=== PATIENT | female | born 1990 | race Caucasian/White ===

== ENCOUNTER 2019-11-27 18:35 | Observation (INO) | payer OTHER, SELFPAY ==
[2019-11-27 19:10] VITALS: BP 108/66; PULSE 62
[2019-11-27 19:15] VITALS: BP 114/70; PULSE 63; BMI 30.2
[2019-11-27] MEDS: CALCIUM CARBONATE (TUMS) 500 MG (200 MG ELEMENTAL) PO (20:48)
[2019-11-27 20:56] LABS: Add Urine Microscopic? NO; Appearance Urine Clear (Clear); Bilirubin Urine Negative (Negative); Blood Urine Negative (Negative); Color Urine Straw (Yellow); Glucose Urine UA Negative (Negative); Ketones Urine Negative (Negative); Leukocyte Esterase Ur Negative LEU/UL (NEGATIVE); Nitrate Urine Negative (Negative); Protein Urine Negative (Negative); Specific Grav Ur 1.006 (1.001-1.035); Urobilinogen Urine Negative mg/dL (<2.0)
[2019-11-27 21:22] LABS: Fetal Fibronectin Negative
[2019-11-27] MEDS: TERBUTALINE SULFATE 1 MG/ML VIAL 0.25 MG SUB-Q (21:35)
--- NOTE | 2019-11-27 21:41 | OBADM ---
This patient, Molly Aguirre, admitted to the OB room OB Post 116 for observation. Patient/family oriented to hospital policies and general routines including ID bracelet, bed and alarms, visiting hours, pain management, procedures, bathroom and other care routines, personal items, smoking policy, room service/diet, and visiting hours. Patient/Family are encouraged to report perceived risks to care and to ask questions if they do not understand what they are told or what they should do.
--- NOTE | 2019-11-30 07:38 | P.PNOB_ITS ---
OB - Triage/Final Diagnosis Visit Information Reason for evaluation: other (abdominal pain) Evaluation Laboratory results: Laboratory Tests 11/27/19 11/27/19 20:41 20:41 Urine Color Straw Urine Appearance Clear Urine pH 8.0 Ur Specific [place] 1.006 Urine Protein Negative Urine Glucose (UA) Negative Urine Ketones Negative Ur Blood (Man) Negative Urine Nitrate Negative Urine Bilirubin Negative Urine Urobilinogen Negative Ur Leukocyte Esterase Negative Fibronectin Negative
== END 2019-11-27 23:00 | disposition home or self-care (01) ==
PROVIDERS: Admitting Provider Obstetrics & Gynecology Gynecology; Visit Provider Obstetrics & Gynecology Gynecology
DX: O26.893 Other specified pregnancy related conditions, third trimester (principal); R10.9 Unspecified abdominal pain; Z3A.31 31 weeks gestation of pregnancy
CPT/HCPCS: 81003; 82731; 87086; 87088; 96372; A9270; G0378; G0379; J3105

== ENCOUNTER 2019-12-01 17:45 | Observation (INO) | payer OTHER, SELFPAY ==
--- NOTE | 2019-12-01 17:45 | OBADM ---
This patient, Molly Aguirre, admitted to the OB room OB Post 115 for observation. Patient/family oriented to hospital policies and general routines including ID bracelet, bed and alarms, visiting hours, pain management, procedures, bathroom and other care routines, personal items, smoking policy, room service/diet, and visiting hours. Patient/Family are encouraged to report perceived risks to care and to ask questions if they do not understand what they are told or what they should do.
[2019-12-01 18:00] VITALS: TEMP 36.9
[2019-12-01 18:13] VITALS: BP 100/66; PULSE 80
--- NOTE | 2019-12-01 18:27 | PC.NURSE ---
Updated Dr. Choi. Patient complaint of cramping at home. Irritability noted, patient reports decreased irritability since arrival to OB unit. FHT reactive. VSS. Abdomen palpates soft. Discharge orders received.
--- NOTE | 2019-12-01 18:55 | PC.NURSE ---
Discharge instructions reviewed with patient. Patient states understanding of discharge instructions. Patient denies questions and is agreeable to discharge. Patient instructed to call OB office for follow-up appointment.
--- NOTE | 2019-12-08 08:38 | PM.OBTRLD ---
OB - Triage/Final Diagnosis Visit Information Comments/Additional reasons for admission: cramping
== END 2019-12-01 18:55 | disposition home or self-care (01) ==
PROVIDERS: Admitting Provider Obstetrics & Gynecology Gynecology; PCP Internal Medicine; Visit Provider Obstetrics & Gynecology Gynecology
DX: O26.893 Other specified pregnancy related conditions, third trimester (principal); R10.9 Unspecified abdominal pain; Z3A.32 32 weeks gestation of pregnancy
CPT/HCPCS: 59025; G0378; G0379

== ENCOUNTER 2020-02-14 12:54 | Outpatient (CLI) | payer OTHER, SELFPAY ==
[2020-02-14 13:08] LABS: Add Urine Microscopic? YES; Appearance Urine Clear (Clear); Basophils Absolute Auto 0.04 K/mm3 (0.00-0.10); Basophils Percent Auto 0.6 % (0.0-1.0); Bilirubin Urine Negative (Negative); Blood Urine 2+ (Negative); Color Urine Yellow (Yellow); Eosinophils Absolute Auto 0.15 K/mm3 (0.02-0.50); Eosinophils Percent Auto 2.3 % (1.0-6.0); Glucose Urine UA Negative (Negative); Hematocrit 41.8 % (35.0-49.0); Hemoglobin 13.7 g/dL (12.0-15.0); Immature Granulocyte Absolute 0.03 K/mm3 (0.00-0.00); Immature Granulocyte Percent A 0.5 % (0.0-0.0); Ketones Urine 1+ (Negative); Leukocyte Esterase Ur 1+ LEU/UL (Negative); Lymphocytes Absolute Auto 2.22 K/mm3 (1.10-4.50); Lymphocytes Percent Auto 34.2 % (18.0-42.0); Mean Corpuscular HGB Conc 32.8 g/dL (32.0-36.0); Mean Corpuscular Hemoglobin 30.9 pg (27.0-31.0); Mean Corpuscular Volume 94.1 fL (78.0-102.0); Monocytes Absolute Auto 0.51 K/mm3 (0.10-0.90); Monocytes Percent Auto 7.8 % (2.0-11.0); Neutrophils Absolute Auto 3.6 K/mm3 (1.7-7.2); Neutrophils Percent Auto 54.6 % (50.0-70.0); Nitrate Urine Negative (Negative); Platelet Count Result 350 K/mm3 (150-420); Protein Urine Negative (Negative); Red Blood Count 4.44 M/mm3 (4.20-5.40); Red Cell Distribution Width 12.3 % (11.6-14.4); Specific Grav Ur 1.025 (1.010-1.020); Urobilinogen Urine 0.2 mg/dL (0.2-1.0); White Blood Count 6.5 K/mm3 (4.8-10.8); pH Urine 5.5 (5.0-8.0)
[2020-02-14 13:15] LABS: Bacteria Urine 1+ /hpf; Squamous Epithelial Cell Urine Few /hpf (Few)
[2020-02-14 14:15] LABS: Alanine Aminotransferase 39 U/L (14-59); Albumin Level 3.6 g/dL (3.4-5.0); Alkaline Phosphatase 88 U/L (46-116); Anion Gap 9 mmol/L (8-16); Aspartate Amino Transferase 17 U/L (15-37); Bilirubin,Total 0.3 mg/dL (0.00-1.00); Blood Urea Nitrogen 14 mg/dL (7-18); Calcium 9.5 mg/dL (8.5-10.1); Carbon Dioxide 30 mmol/L (21-32); Chloride 103 mmol/L (98-108); Estimated Glomerular Filt Rate > 60; Glucose 93 mg/dL (70-99); Osmolality Calculated 294 mOsm/kg (285-295); Sodium 142 mmol/L (136-145); Total Protein 7.1 g/dL (6.4-8.2)
== END 2020-02-14 12:55 | disposition home or self-care (01) ==
LOC: CHSLAB 12:56
PROVIDERS: PCP Internal Medicine; Visit Provider Internal Medicine
DX: R50.9 Fever, unspecified (principal); N64.4 Mastodynia
CPT/HCPCS: 36415; 80053; 81001; 85025; 87086

== ENCOUNTER 2020-12-18 11:48 | Outpatient (CLI) | payer OTHER, SELFPAY ==
[2020-12-18 13:05] LABS: SARS-CoV-2 RNA PCR Negative (Negative)
== END 2020-12-18 11:49 | disposition home or self-care (01) ==
LOC: CHSLAB 11:51
PROVIDERS: PCP Internal Medicine; Visit Provider Internal Medicine
DX: R05 Cough (principal); R06.02 Shortness of breath; Z20.822 Contact with and (suspected) exposure to COVID-19
CPT/HCPCS: C9803; U0003; U0005

== ENCOUNTER 2020-12-20 11:05 | Outpatient (CLI) | payer OTHER, SELFPAY ==
--- NOTE | ~2020-12-20 | XR_ITS ---
EXAMINATION: XR chest 2V DATE: 12/20/2020 11:40 INDICATION: Chest pain. Shortness of breath. TECHNIQUE: Frontal and lateral views of the chest were obtained. COMPARISON: Chest 2 views 11/27/2015, CT abdomen and pelvis 07/04/2017 FINDINGS: The chest demonstrates clear lungs without pneumonia, pleural effusion, or pneumothorax. Th e heart size is normal. IMPRESSION: 1. No acute cardiopulmonary disease. Reviewed, dictated and finalized at location B.
[2020-12-20 11:16] LABS: Basophils Absolute Auto 0.04 K/mm3 (0.00-0.10); Basophils Percent Auto 0.6 % (0.0-1.0); Eosinophils Absolute Auto 0.04 K/mm3 (0.02-0.50); Eosinophils Percent Auto 0.6 % (1.0-6.0); Hematocrit 40.8 % (35.0-49.0); Hemoglobin 13.7 g/dL (12.0-15.0); Immature Granulocyte Absolute 0.02 K/mm3 (0.00-0.00); Immature Granulocyte Percent A 0.3 % (0.0-0.0); Lymphocytes Absolute Auto 1.93 K/mm3 (1.10-4.50); Lymphocytes Percent Auto 30.1 % (18.0-42.0); Mean Corpuscular HGB Conc 33.6 g/dL (32.0-36.0); Mean Corpuscular Hemoglobin 30.4 pg (27.0-31.0); Mean Corpuscular Volume 90.5 fL (78.0-102.0); Mean Platelet Volume 9.3 fl (9.2-11.8); Monocytes Absolute Auto 0.53 K/mm3 (0.10-0.90); Monocytes Percent Auto 8.3 % (2.0-11.0); Neutrophils Absolute Auto 3.9 K/mm3 (1.7-7.2); Neutrophils Percent Auto 60.1 % (50.0-70.0); Platelet Count Result 262 K/mm3 (150-420); Red Blood Count 4.51 M/mm3 (4.20-5.40); White Blood Count 6.4 K/mm3 (4.8-10.8)
[2020-12-20 11:29] LABS: D Dimer 0.19 mg/L (0.19-0.50)
[2020-12-20 12:22] LABS: Alanine Aminotransferase 26 U/L (14-59); Albumin Level 4.1 g/dL (3.4-5.0); Alkaline Phosphatase 73 U/L (46-116); Anion Gap 11 mmol/L (8-16); Aspartate Amino Transferase 13 U/L (15-37); Bilirubin,Total 0.3 mg/dL (0.00-1.00); Blood Urea Nitrogen 14 mg/dL (7-18); Calcium 8.9 mg/dL (8.5-10.1); Carbon Dioxide 28 mmol/L (21-32); Chloride 104 mmol/L (98-108); Creatine Kinase 94 U/L (26-192); Estimated Glomerular Filt Rate > 60; Glucose 93 mg/dL (70-99); Osmolality Calculated 296 mOsm/kg (285-295); Potassium 4.2 mmol/L (3.5-5.1); Sodium 143 mmol/L (136-145); Total Protein 7.4 g/dL (6.4-8.2)
[2020-12-20 12:24] LABS: Creatine Kinase MB < 0.50 ng/mL (0.00-5.00); Troponin I < 4.0 ng/L (0.00-60.4)
== END 2020-12-20 11:06 | disposition home or self-care (01) ==
LOC: CHSLAB 11:07
PROVIDERS: PCP Internal Medicine; Visit Provider Nurse Practitioner Family
DX: R07.9 Chest pain, unspecified (principal); R06.02 Shortness of breath
CPT/HCPCS: 36415; 71046; 80053; 82550; 82553; 84484; 85025; 85380

== ENCOUNTER 2020-12-26 08:54 | Outpatient (CLI) | payer OTHER, SELFPAY | END 2020-12-26 08:55 | disposition home or self-care (01) | PROVIDERS: PCP Internal Medicine; Visit Provider Internal Medicine | DX: R07.9 Chest pain, unspecified (principal); J44.9 Chronic obstructive pulmonary disease, unspecified | CPT/HCPCS: 94060; 94726; 94729 ==

== ENCOUNTER 2021-04-09 14:19 | Outpatient (CLI) | payer OTHER, SELFPAY ==
[2021-04-09 15:19] LABS: SARS-CoV-2 Ag Negative (Negative)
== END 2021-04-09 14:20 | disposition home or self-care (01) ==
LOC: CHSLAB 14:21
PROVIDERS: PCP Internal Medicine; Visit Provider Internal Medicine
DX: Z20.822 Contact with and (suspected) exposure to COVID-19 (principal)
CPT/HCPCS: 87426; C9803

== ENCOUNTER 2021-04-14 13:07 | Outpatient (CLI) | payer OTHER, SELFPAY ==
[2021-04-14 14:27] LABS: SARS-CoV-2 RNA PCR Negative (Negative)
== END 2021-04-14 13:08 | disposition home or self-care (01) ==
LOC: CHSLAB 13:10
PROVIDERS: PCP Internal Medicine; Visit Provider Internal Medicine
DX: J06.9 Acute upper respiratory infection, unspecified (principal); Z20.822 Contact with and (suspected) exposure to COVID-19
CPT/HCPCS: C9803; U0003; U0005

== ENCOUNTER 2021-05-07 13:40 | Outpatient (CLI) | payer OTHER, SELFPAY ==
[2021-05-07 15:09] LABS: SARS-CoV-2 Ag Negative (Negative)
== END 2021-05-07 13:41 | disposition home or self-care (01) ==
LOC: CHSLAB 13:58
PROVIDERS: PCP Internal Medicine; Visit Provider Internal Medicine
DX: Z20.822 Contact with and (suspected) exposure to COVID-19 (principal)
CPT/HCPCS: 87426; C9803

== ENCOUNTER 2021-09-03 09:12 | Emergency (ER) | payer OTHER, SELFPAY ==
--- NOTE | ~2021-09-03 | XR_ITS ---
EXAMINATION: XR chest 1V portable INDICATION: Chest pressure TECHNIQUE: Portable AP chest at 04 hours COMPARISON: 12/20/2020 FINDINGS: The lungs are free of acute opacities. There is no or pneumothorax. The cardiomediastinal s ilhouette is normal. IMPRESSION: 1. No acute cardiopulmonary abnormality. Reviewed, dictated and finalized at location A.
[2021-09-03 09:28] VITALS: BP 111/66; PULSE 69; RESP 20; TEMP 36.7; O2SAT 100
--- NOTE | 2021-09-03 09:30 | ED.SOB ---
HPI - SOB/Dyspnea General Chief Complaint: Shortness of Breath/Dyspnea Stated Complaint: Chest pain Time Seen by Provider: 09/03/21 09:30 Source: patient History of Present Illness HPI Narrative: 31-year-old female ex-smoker a history of asthma presents to the ER with -- chest tightness since yesterday. Denied any chest pain. No relation to exercise. -- palpitation off and on since yesterday -- Had shortness of breath which resolved with albuterol MDI No chest pain or palpitation. MD elicited complaint: shortness of breath and cough Pertinent past history: asthma Onset (ago): day(s) ( Started yesterday) Timing: intermittent Exacerbating factors: nothing Relieving factors: nothing Known history of: asthma Associated symptoms: other ( chest tightness) Treatment prior to arrival: none Related Data Home oxygen amount: none Home Medications Medication Instructions Recorded Confirmed PNV cmb#95-ferrous fumarate-FA 1 tablet PO DAILY 11/27/19 11/27/19 [] Allergies Allergy/AdvReac Type Severity Reaction Status Date / Time No Known Allergies Allergy Unverified 07/04/17 00:02 Review of Systems Review of Systems: All systems reviewed & are unremarkable except as noted in HPI and below Constitutional: Constitutional: Reports as per HPI and Reports no additional constitutional complaints Eyes: Eyes: Reports as per HPI and Reports no additional eye complaints ENT: Reports system reviewed and no additional complaints, except as documented and Reports as per HPI Cardiovascular: Cardiovascular: Reports as per HPI and Reports no additional cardiovascular complaints Comments: chest tightness Respiratory: Respiratory: Reports as per HPI, Reports no additional respiratory complaints, Reports cough and Reports dyspnea Gastrointestinal: Gastrointestinal: Reports as per HPI and Reports no additional gastrointestinal complaints Genitourinary: Genitourinary: Reports no additional female genitourinary complaints and Reports as per HPI Musculoskeletal: Musculoskeletal: Reports no additional musculoskeletal complaints and Reports as per HPI Integumentary/Breasts: Skin/Breast: Reports system reviewed and no additional complaints, except as docu and Reports as per HPI Neurologic: Reports system reviewed and no additional complaints, except as documented and Reports as per HPI Psychiatric: Psychiatric: Reports no additional psychiatric complaints and Reports as per HPI Endocrine: Endocrine: Reports no additional endocrine complaints and Reports as per HPI Hematologic/Lymphatic: Hematologic/Lymphatic: Reports no additional hematologic/lymphatic complaints and Reports as per HPI Allergic/Immunologic: Allergic/Immunologic: Reports no additional allergic/immunologic complaints and Reports as per HPI [facility] Past Medical History Medical History (Updated 09/03/21 @ 10:47 by Kevin Morgan MD) Asthma GERD (gastroesophageal reflux disease) Social History Social History (Updated 09/03/21 @ 09:42 by Kevin Morgan MD) Social History: ex-smoker. Smoking packs per day: 1 Smoking cigarettes per day: 20.0 Years smoked: 15 Smoking pack-years: 15.00 Exam Const: General: no acute distress and alert Orientation/consciousness: patient oriented x3 HENMT: Head: normal to inspection Eyes: Conjunctivae: conjunctivae normal Pupils: Equal, round and reactive pupils present Neck: Neck: normal visual inspection, no lymphadenopathy and no meningeal signs Chest: Chest palpation & inspection: normal inspection of the chest Resp: Effort & Inspection: normal respiratory effort Auscultation: clear to auscultation bilaterally Cardio: Rate: regular rate Rhythm: regular rhythm GI: GI Palp: Yes Soft to palpation Other: abdomen is soft and nontender : General: Yes no CVA tenderness Back/Spine/Pelvis: Back: no CVA tenderness Skin: General skin exam: normal color Rashes: no rashes Neuro: Gener
[2021-09-03 09:34] VITALS: O2SAT 100
--- NOTE | 2021-09-03 09:43 | ECG_ITS ---
Measurements Intervals [place] Rate: 63 P: -6 TX: 134 QRS: 49 QRSD: 90 T: 29 QT: 395 QTc: 407 Interpretive Statements SINUS RHYTHM NORMAL ECG Electronically Signed On 09-03-2021 10:59:42 CDT by Karel Almanza D.O.
[2021-09-03 09:59] LABS: Basophils Absolute Auto 0.02 K/mm3 (0.00-0.10); Basophils Percent Auto 0.3 % (0.0-1.0); Eosinophils Absolute Auto 0.04 K/mm3 (0.02-0.50); Eosinophils Percent Auto 0.6 % (1.0-6.0); Hematocrit 37.9 % (35.0-49.0); Hemoglobin 12.5 g/dL (12.0-15.0); Immature Granulocyte Absolute 0.01 K/mm3 (0.00-0.00); Immature Granulocyte Percent A 0.2 % (0.0-0.0); Lymphocytes Absolute Auto 2.32 K/mm3 (1.10-4.50); Mean Corpuscular Hemoglobin 30.3 pg (27.0-31.0); Mean Platelet Volume 9.9 fl (9.2-11.8); Monocytes Absolute Auto 0.51 K/mm3 (0.10-0.90); Monocytes Percent Auto 7.7 % (2.0-11.0); Neutrophils Absolute Auto 3.7 K/mm3 (1.7-7.2); Neutrophils Percent Auto 56.2 % (50.0-70.0); Platelet Count Result 236 K/mm3 (150-420); Red Blood Count 4.12 M/mm3 (4.20-5.40); Red Cell Distribution Width 12.9 % (11.6-14.4); White Blood Count 6.6 K/mm3 (4.8-10.8)
[2021-09-03 10:22] LABS: Alanine Aminotransferase 14 U/L (14-59); Albumin Level 3.7 g/dL (3.4-5.0); Alkaline Phosphatase 59 U/L (46-116); Anion Gap 7 mmol/L (8-16); Aspartate Amino Transferase 16 U/L (15-37); Bilirubin,Total 0.4 mg/dL (0.00-1.00); Blood Urea Nitrogen 14 mg/dL (7-18); Calcium 8.7 mg/dL (8.5-10.1); Carbon Dioxide 27 mmol/L (21-32); Chloride 104 mmol/L (98-108); Estimated CRCL calculation 81 ml/min; Estimated Glomerular Filt Rate > 60; Glucose 86 mg/dL (70-99); NT Pro B Type Natriuretic Pept 34 pg/mL (0-125); Osmolality Calculated 285 mOsm/kg (285-295); Potassium 4.1 mmol/L (3.5-5.1); Sodium 138 mmol/L (136-145); Thyroid Stimulating Hormone 1.21 uIU/mL (0.36-3.74); Total Protein 6.7 g/dL (6.4-8.2); Troponin I 4.3 ng/L (0.00-60.4)
[2021-09-03 11:19] VITALS: BP 96/61; PULSE 69; RESP 20; TEMP 36.6; O2SAT 100
== END 2021-09-03 11:21 | disposition home or self-care (01) ==
PROVIDERS: Emergency Provider Internal Medicine Critical Care Medicine; PCP Internal Medicine
DX: R07.89 Other chest pain (principal); F41.9 Anxiety disorder, unspecified; R00.2 Palpitations
CPT/HCPCS: 36415; 71045; 80053; 83880; 84443; 84484; 85025; 93005; 99284

== ENCOUNTER 2021-10-24 09:43 | Outpatient (CLI) | payer OTHER, SELFPAY ==
[2021-10-24 10:37] LABS: Influenza A QL RT-PCR Negative (Negative); Influenza B QL RT-PCR Negative (Negative); SARS-CoV-2 RNA PCR Positive (Negative)
== END 2021-10-24 09:44 | disposition home or self-care (01) ==
LOC: CHSLAB 09:46
PROVIDERS: PCP Internal Medicine; Visit Provider Internal Medicine
DX: U07.1 COVID-19 (principal); J02.9 Acute pharyngitis, unspecified; R51.9 Headache, unspecified
CPT/HCPCS: 87502; C9803; U0003; U0005

== ENCOUNTER 2021-11-20 08:44 | Emergency (ER) | payer OTHER, SELFPAY ==
--- NOTE | ~2021-11-20 | XR_ITS ---
EXAMINATION: XR shoulder RT min 2V, XR humerus RT DATE: 11/20/2021 09:39 INDICATION: Painful right upper humerus. TECHNIQUE: Line 1. AP internally and externally rotated, AP oblique externally rotated and transscapular Y views of t he right shoulder were obtained. 2. Internal and external rotated views of the right humerus were obtained. COMPARISON: None FINDINGS: Normal alignment. No fracture. Glenohumeral, chromic clavicular and elbow joint spaces are normal. N o right elbow joint effusion. This is portions of the right lung are clear. Soft tissues are unremark able. IMPRESSION: Negative right shoulder and humerus radiographs. Reviewed, dictated and finalized at location A. IMPRESSION: Negative right shoulder and humerus radiographs.
[2021-11-20 08:50] VITALS: BP 99/61; PULSE 70; RESP 18; TEMP 36.3; O2SAT 100
[2021-11-20 08:59] VITALS: BP 104/76; PULSE 66; RESP 20; TEMP 36.3; O2SAT 100
--- NOTE | 2021-11-20 09:16 | ED.UPPEXIN ---
HPI - Extremity Injury (Upper) General Chief Complaint: Extremity Injury, Upper Stated Complaint: R shoulder pain Time Seen by Provider: 11/20/21 08:48 Source: patient and RN notes reviewed Mode of arrival: ambulatory Limitations: no limitations History of Present Illness complaint: injury to: right and shoulder Onset (ago): day(s) (1) Other Extremity Injury: Right: arm Other injuries: none Place: home Severity: mild Severity scale (1-10): 3 Relieving factors: immobilization Exacerbating factors: movement of extremity Context: other (no acute injury) Associated symptoms: denies other symptoms Related Data Allergies Allergy/AdvReac Type Severity Reaction Status Date / Time No Known Allergies Allergy Unverified 11/20/21 09:44 Review of Systems Review of Systems: All systems reviewed & are unremarkable except as noted in HPI and below Constitutional: Constitutional: Reports no additional constitutional complaints Eyes: Eyes: Reports no additional eye complaints ENT: Reports system reviewed and no additional complaints, except as documented Cardiovascular: Cardiovascular: Reports no additional cardiovascular complaints Respiratory: Respiratory: Reports no additional respiratory complaints Gastrointestinal: Gastrointestinal: Reports no additional gastrointestinal complaints Genitourinary: Genitourinary: Reports no additional female genitourinary complaints Musculoskeletal: Comments: left upper arm pain only. Integumentary/Breasts: Skin/Breast: Reports system reviewed and no additional complaints, except as docu Neurologic: Reports system reviewed and no additional complaints, except as documented Psychiatric: Psychiatric: Reports no additional psychiatric complaints Endocrine: Endocrine: Reports no additional endocrine complaints Hematologic/Lymphatic: Hematologic/Lymphatic: Reports no additional hematologic/lymphatic complaints Allergic/Immunologic: Allergic/Immunologic: Reports no additional allergic/immunologic complaints PMFSH Past Medical History Medical History Asthma GERD (gastroesophageal reflux disease) Right arm pain Social History Social History Social History: ex-smoker. Smoking packs per day: 1 Smoking cigarettes per day: 20.0 Years smoked: 15 Smoking pack-years: 15.00 Exam Const: General: healthy appearing and no acute distress Nutritional Appearance: well nourished Orientation/consciousness: patient oriented x3 Limitations: no limitations HENMT: Head: normal to inspection Ears: external ears normal, TM's normal bilaterally and EAC's normal General nose exam: Normal external nose present and Normal nares present Face and sinus: normal facial exam and sinuses nontender Mouth: Yes Normal oral and palatal mucosa present and Yes moist mucous membranes Teeth and gingiva: dentition normal Throat: posterior oropharynx normal Eyes: Conjunctivae: conjunctivae normal Pupils: Equal, round and reactive pupils present EOM: EOMs intact bilaterally Neck: Neck: normal visual inspection, no lymphadenopathy and no meningeal signs Chest: Chest palpation & inspection: normal inspection of the chest Resp: Effort & Inspection: normal respiratory effort Auscultation: clear to auscultation bilaterally Cardio: Rate: regular rate Rhythm: regular rhythm GI: GI Palp: Yes Soft to palpation and No Tenderness to palpation present (GI) Auscultation: normal bowel sounds : General: Yes bladder normal to palpation and Yes no CVA tenderness Bimanual exam- vagina & uterus: bladder normal to palpation Back/Spine/Pelvis: Back: no CVA tenderness Skin: General skin exam: normal color Rashes: no rashes Wounds: no wounds Neuro: General: patient oriented x3, moves all extremities, no meningeal signs, no focal motor deficits and CN's II-XI intact bilaterally Cranial nerves: Yes Eq
[2021-11-20] MEDS: IBUPROFEN 400 MG TABLET 800 MG PO (09:22)
[2021-11-20 10:16] VITALS: BP 103/70; PULSE 67; RESP 20; O2SAT 100
== END 2021-11-20 10:32 | disposition home or self-care (01) ==
PROVIDERS: Emergency Provider Emergency Medicine; PCP Internal Medicine
DX: M25.511 Pain in right shoulder (principal)
CPT/HCPCS: 73030; 73060; 99283; A4565; A9270

== ENCOUNTER 2022-01-16 09:08 | Outpatient (CLI) | payer OTHER, SELFPAY ==
--- NOTE | 2022-02-16 08:20 | WPDHOLTEREM ---
Holter/Event Monitor Holter/Event Monitor Date of procedure: 02/16/22 Holter/Event Procedure: Event Monitor Indications: Palpitations Conclusion: 1. 14 days event monitor between 01/16/22-02/14/22. There are 8 available transmissions for analysis. 2. Underlying rhythm is sinus rhythm. HR range 50-120 bpm; average HR 73 bpm. 3. There are occasional premature supraventricular complexes with total burden of <1%. No supraventricular tachycardia. 4. There are occasional premature ventricular complexes with total burden of <1%. No ventricular tachycardia. 5. No significant pauses greater than 2 seconds. 6. Patient reports 4 episodes of symptoms of heart racing, skipped beat and shortness of breath/chest pain which demonstrate sinus rhythm, HR range 69-103 bpm and one episode with PAC.
== END 2022-01-16 09:09 | disposition home or self-care (01) ==
LOC: CHSLAB 09:11
PROVIDERS: PCP Internal Medicine; Visit Provider Internal Medicine
DX: R00.2 Palpitations (principal)
CPT/HCPCS: 93270

== ENCOUNTER 2022-04-16 10:15 | Outpatient (CLI) | payer OTHER, SELFPAY ==
[2022-04-16 11:25] LABS: Influenza A QL RT-PCR Negative (Negative); Influenza B QL RT-PCR Negative (Negative); SARS-CoV-2 RNA PCR Negative (Negative)
[2022-04-16 11:27] LABS: RSV RNA, RT-PCR Negative (Negative)
== END 2022-04-16 10:16 | disposition home or self-care (01) ==
LOC: CHSLAB 10:17
PROVIDERS: PCP Internal Medicine; Visit Provider Internal Medicine
DX: R05.9 Cough, unspecified (principal); J02.9 Acute pharyngitis, unspecified; Z20.822 Contact with and (suspected) exposure to COVID-19
CPT/HCPCS: 87637

== ENCOUNTER 2022-05-11 09:38 | Outpatient (CLI) | payer OTHER, SELFPAY ==
[2022-05-13 08:38] LABS: TB Skin Test Erythema 0 mm; TB Skin Test Induration 0 mm (0-10); TB Skin Test Interpretation Negative (Negative); TB Skin Test Site Left Arm
[2022-05-20 15:02] LABS: TB Skin Test Erythema 0 mm; TB Skin Test Induration 0 mm (0-10); TB Skin Test Interpretation Negative (Negative); TB Skin Test Site Left Arm
== END 2022-05-11 09:39 | disposition home or self-care (01) ==
LOC: CHSLAB 09:39
PROVIDERS: PCP Internal Medicine; Visit Provider Internal Medicine
DX: Z02.0 Encounter for examination for admission to educational institution (principal)
CPT/HCPCS: 36415; 86580

== ENCOUNTER 2022-05-18 09:10 | Outpatient (CLI) | payer OTHER, SELFPAY | END 2022-05-18 09:11 | disposition home or self-care (01) | LOC: CHSLAB 09:11 | PROVIDERS: PCP Internal Medicine; Visit Provider Internal Medicine | DX: Z02.0 Encounter for examination for admission to educational institution (principal) | CPT/HCPCS: 99199 ==

== ENCOUNTER 2022-06-04 11:04 | Outpatient (CLI) | payer OTHER, SELFPAY ==
[2022-06-04 11:42] LABS: Strep Group A RT-PCR NOT DETECTED (Negative)
[2022-06-04 11:54] LABS: Influenza A QL RT-PCR Negative (Negative); Influenza B QL RT-PCR Negative (Negative); SARS-CoV-2 RNA PCR Negative (Negative)
[2022-06-04 11:57] LABS: RSV RNA, RT-PCR Negative (Negative)
== END 2022-06-04 11:05 | disposition home or self-care (01) ==
PROVIDERS: PCP Internal Medicine; Visit Provider Internal Medicine
DX: J06.9 Acute upper respiratory infection, unspecified (principal); J02.9 Acute pharyngitis, unspecified; Z20.822 Contact with and (suspected) exposure to COVID-19
CPT/HCPCS: 87637; 87651

== ENCOUNTER 2023-07-23 10:36 | Outpatient (CLI) | payer OTHER, SELFPAY ==
--- NOTE | ~2023-07-23 | XR_ITS ---
Right Hand Technique: PA, oblique, and lateral views were obtained. Clinical History: Pain Findings: No acute fracture or dislocation is seen. Osseous alignment is anatomic. Joint spaces are p reserved. Soft tissues are unremarkable. Impression: Unremarkable right hand. Reviewed, dictated and finalized at location M. Impression: Unremarkable right hand.
--- NOTE | ~2023-07-23 | XR_ITS ---
Right wrist Technique: PA, oblique, lateral, and ulnar deviation views were obtained. Clinical History: Pain Findings: No acute fracture or dislocation is seen. Osseous alignment is anatomic. Joint spaces are p reserved. Soft tissues are unremarkable. Impression: Unremarkable right wrist radiographs. Reviewed, dictated and finalized at location . Impression: Unremarkable right wrist radiographs.
== END 2023-07-23 10:37 | disposition home or self-care (01) ==
LOC: CHSIMG 10:38
PROVIDERS: PCP Internal Medicine; Visit Provider Internal Medicine
DX: M25.531 Pain in right wrist (principal)
CPT/HCPCS: 73110; 73130

== ENCOUNTER 2023-08-29 08:28 | Emergency (ER) | payer OTHER, SELFPAY ==
--- NOTE | 2023-08-29 08:36 | ED.URI ---
HPI - URI/Sore Throat General Chief Complaint: Upper Respiratory Infection Stated Complaint: requesting flu/covid/rsv testing Time Seen by Provider: 08/29/23 08:33 Source: patient Mode of arrival: ambulatory Limitations: no limitations History of Present Illness HPI Narrative: Patient is a 33-year-old female with a left greater than right sore throat for the past 2 days. She also desires COVID testing. MD elicited complaint: sore throat Onset (ago): day(s) (2) Consistency: constant Severity: moderate Pain scale (0-10): 4 Description of mucous: clear Able to tolerate fluids by mouth: Yes Exacerbating factors: nothing Relieving factors: nothing Associated symptoms: chills, nasal congestion and sore throat Treatments prior to arrival: none Related Data Allergies Allergy/AdvReac Type Severity Reaction Status Date / Time No Known Allergies Allergy Unverified 11/20/21 09:44 Review of Systems Review of Systems: All systems reviewed & are unremarkable except as noted in HPI and below Constitutional: Constitutional: Reports no additional constitutional complaints Eyes: Eyes: Reports no additional eye complaints ENT: Reports system reviewed and no additional complaints, except as documented Cardiovascular: Cardiovascular: Reports no additional cardiovascular complaints Respiratory: Respiratory: Reports no additional respiratory complaints Gastrointestinal: Gastrointestinal: Reports no additional gastrointestinal complaints Genitourinary: Genitourinary: Reports no additional female genitourinary complaints Musculoskeletal: Musculoskeletal: Reports no additional musculoskeletal complaints Integumentary/Breasts: Skin/Breast: Reports system reviewed and no additional complaints, except as docu Neurologic: Reports system reviewed and no additional complaints, except as documented Psychiatric: Psychiatric: Reports no additional psychiatric complaints Endocrine: Endocrine: Reports no additional endocrine complaints Hematologic/Lymphatic: Hematologic/Lymphatic: Reports no additional hematologic/lymphatic complaints Allergic/Immunologic: Allergic/Immunologic: Reports no additional allergic/immunologic complaints PMFSH Past Medical History Medical History Asthma GERD (gastroesophageal reflux disease) Right arm pain Social History Social History Social History: ex-smoker. Smoking packs per day: 1 Smoking cigarettes per day: 20.0 Years smoked: 15 Smoking pack-years: 15.00 Exam Const: General: healthy appearing Nutritional Appearance: well nourished Orientation/consciousness: patient oriented x3 HENMT: Head: normal to inspection Ears: external ears normal Face/Nose/Sinus: Normal external nose present Other: Left tonsil has pus and erythema with General oropharynx erythema; 2+ tonsillar hypertrophy bilaterally Eyes: Conjunctivae: conjunctivae normal Pupils: Equal, round and reactive pupils present EOM: EOMs intact bilaterally Neck: Neck: normal visual inspection Chest: Chest palpation & inspection: normal inspection of the chest Resp: Effort & Inspection: normal respiratory effort and not labored Auscultation: clear to auscultation bilaterally Cardio: Rate: regular rate Rhythm: regular rhythm Heart sounds: no murmurs GI: Inspection: non-distended GI Palp: Yes Soft to palpation and No Tenderness to palpation present (GI) Auscultation: normal bowel sounds : General: Yes bladder normal to palpation Back/Spine/Pelvis: Back: no CVA tenderness Skin: General skin exam: normal color Rashes: no rashes Wounds: no wounds Neuro: General: patient oriented x3 Cranial nerves: Yes Nystagmus not present Speech: normal speech Extrem: General: normal to inspection Psych: Mental Status: mental status grossly normal Affect: normal affect Attitude: cooperative Course Vital S
[2023-08-29 08:43] VITALS: BP 94/64; PULSE 94; RESP 18; TEMP 36.7; O2SAT 97
[2023-08-29 09:23] LABS: SARS-CoV-2 RNA PCR Negative (Negative)
[2023-08-29 09:24] LABS: Influenza A QL RT-PCR Negative (Negative); Influenza B QL RT-PCR Negative (Negative); RSV RNA, RT-PCR Negative (Negative)
[2023-08-29 10:00] LABS: Strep Group A RT-PCR NOT DETECTED (Negative)
[2023-08-29 10:20] VITALS: BP 98/74; PULSE 80; RESP 16; TEMP 36.8; O2SAT 99
== END 2023-08-29 10:20 | disposition home or self-care (01) ==
PROVIDERS: Emergency Provider Emergency Medicine; PCP Internal Medicine
DX: J02.8 Acute pharyngitis due to other specified organisms (principal); J45.909 Unspecified asthma, uncomplicated; K21.9 Gastro-esophageal reflux disease without esophagitis; Z20.822 Contact with and (suspected) exposure to COVID-19
CPT/HCPCS: 87637; 87651; 99283

== ENCOUNTER 2024-07-22 09:05 | Emergency (ER) | payer OTHER, SELFPAY ==
[2024-07-22 09:05] VITALS: BP 112/74; PULSE 73; RESP 18; TEMP 35.6; O2SAT 100
--- OUTSIDE RECORDS SUMMARY | 2024-07-22 09:07 | XMS_ITS | Encounter Summary ---
Author Organization [facility] Address [address] [place] [address] Care Team Providers Care Dairy Department Manager Name Role Phone Sharif Mathias MD Primary Care Provider [phone] Encounter Details Date Type Department Care Team (Late st Contact Info) Description 02/02/[address] [facility] [address] [facility] [place] [address] Keerthi Mcmullen, [facility] [address] [place] [address] Social History Tobacco Use Types Packs/Day Years Used Date Smoking Tobacco: Former Smokeless Tobacco: Never Alcohol Use Standard Drinks/Week Comments Not Currently 0 (1 standard drink = 0.6 oz pur e alcohol) Comments No Sex and Gender Information Value Date Recorded Sex Assigned at Not on file Legal Sex Female 11:15 AM CDT Gender Identity Not on file Sexual Orientation Not on file COVID-19 Exposure Response Date Recorded In the last month, have you been in contact with someone who was confirmed or suspected to have Coronavirus / COVID-19? No / Unsure 01/29/2020 7:54 PM CDT documented as of this encounter Functional Status * RETIRED Are you deaf or do you have serious difficulty hearing Answer Date of Assessment Author Status No 01/26/2020 9:34 AM CDT Activ e * RETIRED Are you blind or do you have serious difficulty seeing, even when wearing glasses? Answer Date of Assessment Author Status No 01/26/2020 9:34 AM CDT Activ e * Do you have serious difficulty walking or climbing stairs? Answer Date of Assessment Author Status No 01/26/2020 9:34 AM CDT Karen Barnard, RN Active * Do you have difficulty dressing or bathing? Answer Date of Assessment Author Status No 01/26/2020 9:34 AM Karen Alexis RN Active * Because of a physical, mental, or emotional condition, do you have difficulty doing errands alone such as visiting a doctor's office or shopping? Answer Date of Assessment Author Status No 01/26/2020 9:34 AM Karen Alexis RN Active documented as of this encounter Mental Status * Because of a physical, mental, or emotional condition, do you have serious difficulty concentrating, remembering, or making decisions? Answer Entry Date Author Status No 01/26/2020 9:34 AM Karen Alexis RN Active documented in this encounter Plan of Treatment Not on file documented as of this encounter Visit Diagnoses Not on filedocumented in this encounter Care Teams Dairy Department Manager Relationship Specialty Start Date End Date Sharif Mathias MD [address] [place] [address] PCP - General INTERNAL MEDICINE 11/27/19 documented as of this encounter
--- OUTSIDE RECORDS SUMMARY | 2024-07-22 09:07 | XMS_ITS | Encounter Summary ---
Author Organization [facility] Address [address] [place] [address] Care Team Providers Care Certified Social Workers In Health Care Name Role Phone Sharif Mathias MD Primary Care Provider Encounter Details Date Type Department Care Team (Late st Contact Info) Description 02/02/2020 Pre-Procedure Call [place] [address] Keerthi Mcmullen, [facility] [address] [place] [address] Social History Tobacco Use Types [...] Status No 01/26/2020 9:34 AM CDT Karen Barnard RN Active * Do you have difficulty [...] on filedocumented in this encounter Care Teams Certified Social Workers In Health Care Relationship Specialty Start Date End Date Sharif Mathias MD [address] [place] [address] PCP - General INTERNAL MEDICINE 11/27/19 documented as of this encounter
--- OUTSIDE RECORDS SUMMARY | 2024-07-22 09:07 | XMS_ITS | Clinical Summary ---
Author Organization [facility] Address [facility] [place] [address] Care Team Providers Care Integrated Program Teacher Name Role Phone Sharif Mathias MD Primary Care Provider [phone] Allergies No known active allergies Medications meloxicam (MOBIC) 15 MG tabletIndication s:Acute pain of left wrist Take 1 tablet (15 mg total) by mouth daily. 30 tablet 2 09/16/2022 Active Active Problems Problem Noted Date Diagnosed Date Aftercare following surgery 03/11/2022 Ganglion cyst of volar aspect of left wrist 02/01 Normal labor (HHS/HCC) 01/26/2020 Family History Medical History Relation Comments No Known Problems Father No Known Problems Mother Relation Status Comments Father Alive Mother Alive Social History Tobacco Use Types Packs/Day Years Used Date Smoking Tobacco: Former Cigarettes Q uit: 2020 Smokeless Tobacco: Never Tobacco Cessation:Counseling Given: Not Answered Alcohol Use Standard Drinks/Week Comments Not Currently 0 (1 standard drink = 0.6 oz pur e alcohol) Comments No Sex and Gender Information Value Date Recorded Sex Assigned at Not on file Legal Sex Female 11:15 AM CDT Gender Identity Not on file Sexual Orientation Not on file Last Filed Vital Signs Vital Sign Reading Time Taken Comments Blood Pressure 96/49 02/25/2022 12:14 PM CDT Pulse 67 02/25/2022 12:14 PM CDT Temperature 36.2 C (97.1 F) 02/25/2022 12:14 PM CDT Respiratory Rate 14 02/25/2022 12:14 PM CDT Oxygen Saturation 99% 02/25/2022 12:14 PM CDT Inhaled Oxygen Concentration - - Weight 68 kg (150 lb) 09/16/2022 4:37 PM CDT Height 165.1 cm (5' 5 ) 09/16/2022 4:37 PM CDT Body Mass Index 24.96 09/16/2022 4:37 PM CDT Plan of Treatment Health Maintenance Due Date Last Done Comments Cervical Cancer Screening Pa p Smear (Age 30 to 64) Every 3 Years 1990 Annual Physical 1993 Hepatitis C 2008 DTaP, Tdap and Td Vaccines ( 1 - Tdap) 2009 Hepatitis B Vaccines (1 of 3 - 19+ 3-dose series) 2009 Cervical Cancer Screening Pa p with HPV Testing (Age 30 to 64) Every 5 Years 2020 Cervical Cancer Screening with HPV 2020 COVID-19 Vaccine (2023-2 5 season) 2024 Influenza Adult (#1) 2024 HPV Vaccines Aged Out No longer eligi ble based on patient's age to complete this topic Meningococcal B Vaccine Aged Out No l onger eligible based on patient's age to complete this topic Meningococcal Vaccine Aged Out No jeanne christy eligible based on patient's age to complete this topic Pneumococcal Vaccine: Pediat rics (0 to 5 Years) and At-Risk Patients (6 to 64 Years) Aged Out No longer eligible b ased on patient's age to complete this topic RSV Immunizations Under 20 Months Aged Out No longer eligible based on patient's age to complete this topic Insurance [facility] Advance Directives * Full Code (Latest Code Status on File) Date Activated Date Inactivated Comments 01/26/2020 1:59 PM 01/28/2020 1:00 PM Care Teams Integrated Program Teacher Relationship Specialty Start Date End Date Sharif Mathias MD [address] [place] [address] PCP - General INTERNAL MEDICINE 11/27/19
--- NOTE | 2024-07-22 09:17 | ED_ITS ---
HPI - URI/Sore Throat General Chief Complaint: Upper Respiratory Infection Stated Complaint: white bumps on throat Time Seen by Provider: 07/22/24 09:11 Source: patient Mode of arrival: ambulatory Limitations: no limitations History of Present Illness HPI Narrative: this is a 34-year-old female no significant past medical history presents with cough congestion with a sore throat with no fever chills no shortness of breath no audible wheezing no nausea vomiting. MD elicited complaint: cough, sore throat, rhinorrhea and nasal congestion Onset (ago): day(s) Consistency: constant Severity: mild Description of mucous: clear Related Data Allergies Allergy/AdvReac Type Severity Reaction Status Date / Time No Known Allergies Allergy Verified 07/22/24 09:10 Review of Systems Review of Systems: All systems reviewed & are unremarkable except as noted in HPI and below PMFSH Past Medical History Medical History Right arm pain GERD (gastroesophageal reflux disease) Asthma Social History Social History Social History: ex-smoker. Smoking packs per day: 1 Smoking cigarettes per day: 20.0 Years smoked: 15 Smoking pack-years: 15.00 Exam Const: General: healthy appearing and no acute distress Nutritional Appearance: well nourished Orientation/consciousness: patient oriented x3 Limitations: no limitations HENMT: Other: Throat is erythematous with bilateral submandibular lymph node tenderness Eyes: Conjunctivae: conjunctivae normal Pupils: Equal, round and reactive pupils present EOM: EOMs intact bilaterally Neck: Neck: normal visual inspection and lymphadenopathy Chest: Chest palpation & inspection: normal inspection of the chest Resp: Effort & Inspection: normal respiratory effort Auscultation: clear to auscultation bilaterally Cardio: Rate: regular rate Rhythm: regular rhythm GI: GI Palp: Yes Soft to palpation Auscultation: normal bowel sounds Skin: General skin exam: normal color Course Course Emergency Course: patient had a COVID influenza and RSV performed and reviewed as well as strep performed and reviewed with patient. Vital Signs Vital signs: Vital Signs Temperature 35.6 C L 07/22/24 09:05 Pulse Rate 73 07/22/24 09:05 Respiratory Rate 18 07/22/24 09:05 Blood Pressure 112/74 07/22/24 09:05 Pulse Oximetry 100 07/22/24 09:05 Oxygen Delivery Room Air 07/22/24 09:05 Temperature 36.2 C L 07/22/24 10:03 Pulse Rate 67 07/22/24 10:03 Respiratory Rate 18 07/22/24 10:03 Blood Pressure 95/57 L 07/22/24 10:03 Pulse Oximetry 100 07/22/24 10:03 Oxygen Delivery Room Air 07/22/24 10:03 MDM - URI/Sore Throat Lab Data Labs: Lab Results 07/22/24 Range/Units 09:14 Influenza A (RT-PCR) Negative (Negative) Influenza B (RT-PCR) Negative (Negative) RSV (RT-PCR) Negative (Negative) SARS-CoV-2 RNA (RT-PCR) Negative (Negative) Group A Strep (PCR) Not detected (Negative) Critical Care Time Critical Care Time Critical Care Time: No Discharge Plan Discharge Clinical Impression: Viral infection Patient Disposition: Home, Self-Care Condition: Stable Instructions: Antibiotic Form, Viral Syndrome (ED) Additional Instructions: Advised to take Tylenol or Motrin as needed get rest drink plenty of fluids and follow up with primary if symptoms persist or worsen. Patient Language: Beninese Prescriptions: No Action amoxicillin 500 mg capsule 500 mg PO BID 10 Days Qty: 20 0RF omeprazole magnesium [Prilosec OTC] 20 mg tablet,delayed release (DR/EC) 20 mg PO BID Qty: 20 0RF Follow-up/Referrals: UNKNOWN,DOCTOR [Non-Staff] - Stand Alone Forms: Work/School Release IP Time of Disposition: 09:56
--- NOTE | 2024-07-22 09:30 | PC.NURSE ---
italo sent to lab
--- OUTSIDE RECORDS SUMMARY | 2024-07-22 09:44 | XMS_ITS | Encounter Summary ---
Author Organization [facility] Address [address] [place] [address] Care Team Providers Care Rf Engineer Name Role Phone Sharif Mathias MD Primary Care Provider [phone] Encounter Details Date Type Department Care Team (Late st Contact Info) Description 02/02/2020 Hospital Orders Only [facility] [address] [facility] [place] [address] Keerthi Mcmullen, [facility] [address] [place] [address] Social History Tobacco Use Types [...] on filedocumented in this encounter Care Teams Rf Engineer Relationship Specialty Start Date End Date Sharif Mathias MD [address] [place] [address] PCP - General INTERNAL MEDICINE 11/27/19 documented as of this encounter
--- OUTSIDE RECORDS SUMMARY | 2024-07-22 09:44 | XMS_ITS | Clinical Summary ---
Author Organization [facility] Address [facility] [place] [address] Care Team Providers Care Tester Regulator Name Role Phone Sharif Mathias MD Primary Care Provider [phone] Allergies No known active allergies Medications meloxicam [...] patient's age to complete this topic Insurance [facility] Advance Directives * Full Code (Latest Code Status on File) Date Activated Date Inactivated Comments 01/26/2020 1:59 PM 01/28/2020 1:00 PM Care Teams Tester Regulator Relationship Specialty Start Date End Date Sharif Mathias MD [address] [place] [address] PCP - General INTERNAL MEDICINE 11/27/19
--- OUTSIDE RECORDS SUMMARY | 2024-07-22 09:44 | XMS_ITS | Encounter Summary ---
Author Organization [facility] Address [address] [place] [address] Care Team Providers Care Laser Engraver Name Role Phone Sharif Mathias MD Primary Care Provider Encounter Details Date Type Department Care Team (Late st Contact Info) Description 02/02/2020 Pre-Procedure Call [place] [address] Keerthi Mcmullen, [facility] [address] [place] [address] Social History Tobacco Use Types [...] on filedocumented in this encounter Care Teams Laser Engraver Relationship Specialty Start Date End Date Sharif Mathias MD [address] [place] [address] PCP - General INTERNAL MEDICINE 11/27/19 documented as of this encounter
[2024-07-22 09:49] LABS: Strep Group A RT-PCR NOT DETECTED (Negative)
[2024-07-22 09:53] LABS: Influenza A QL RT-PCR Negative (Negative); Influenza B QL RT-PCR Negative (Negative); RSV RNA, RT-PCR Negative (Negative); SARS-CoV-2 RNA PCR Negative (Negative)
[2024-07-22 10:03] VITALS: BP 95/57; PULSE 67; RESP 18; TEMP 36.2; O2SAT 100
== END 2024-07-22 10:03 | disposition home or self-care (01) ==
LOC: CHSED 09:43
PROVIDERS: Emergency Provider Emergency Medicine; PCP Internal Medicine
DX: B34.9 Viral infection, unspecified (principal); Z87.891 Personal history of nicotine dependence; Z20.822 Contact with and (suspected) exposure to COVID-19
CPT/HCPCS: 87637; 87651; 99283

== ENCOUNTER 2024-08-08 09:26 | Outpatient (CLI) | payer OTHER, SELFPAY ==
--- NOTE | ~2024-08-08 | XR_ITS ---
EXAM/PROCEDURE: XR chest 2V - 08/08/2024 09:43 CDT HISTORY: 34 years old Female with Neuropathy/Back pain TECHNIQUE: Two view(s) of the chest. COMPARISON: 12/20/2020 FINDINGS: LUNGS/ PLEURA: No focal consolidation. No appreciable pneumothorax or large pleural effusion. HEART/ MEDIASTINUM: Heart appears normal in size. BONES: No acute osseous abnormality. OTHER: Visualized upper abdomen is unremarkable. IMPRESSION: No acute process. Reviewed, dictated and finalized at location A. IMPRESSION: No acute process.
--- NOTE | ~2024-08-08 | XR_ITS ---
Lumbosacral Spine: AP and lateral views Clinical History: Pain Findings: The normal lordotic curve is maintained. The vertebral bodies and posterior elements are i ntact. The intervertebral disc spaces are preserved. The sacroiliac joints are normally outlined. Impression: No significant abnormality. Reviewed, dictated and finalized at [facility]. Impression: No significant abnormality.
[2024-08-08 09:51] LABS: Hematocrit 38.7 % (35.0-49.0); Hemoglobin 12.7 g/dL (12.0-15.0); Mean Corpuscular HGB Conc 32.8 g/dL (32-36); Mean Corpuscular Hemoglobin 29.3 pg (27.0-31.0); Mean Corpuscular Volume 89.2 fL (78.0-102.0); Mean Platelet Volume 9.6 fl (9.2-11.8); Platelet Count Result 276 K/mm3 (150-420); Red Blood Count 4.34 M/mm3 (4.20-5.40); Red Cell Distribution Width 12.8 % (11.6-14.4); White Blood Count 6.3 K/mm3 (4.8-10.8)
[2024-08-08 09:52] LABS: Add Urine Microscopic? NO; Appearance Urine Clear (Clear); Bilirubin Urine Negative (Negative); Blood Urine Negative (Negative); Color Urine Light Yellow (Yellow); Glucose Urine UA Negative (Negative); Ketones Urine Negative (Negative); Leukocyte Esterase Ur Negative (Negative); Nitrate Urine Negative (Negative); Protein Urine Negative (Negative); Urobilinogen Urine 0.2 mg/dL (0.2-1.0)
--- OUTSIDE RECORDS SUMMARY | 2024-08-08 10:17 | XMS_ITS | Clinical Summary ---
Author Organization [facility] Address Count includes the [facility] [place] [address] Care Team Providers Care Membership Advisor Name Role Phone Sharif Mathias MD Primary Care Provider [phone] Allergies No known active allergies Medications meloxicam [...] 2020 COVID-19 Vaccine (2023-2 5 season) 2024 HPV Vaccines Aged Out No longer [...] patient's age to complete this topic Insurance Advance Directives * Full Code (Latest Code Status on File) Date Activated Date Inactivated Comments 01/26/2020 1:59 PM 01/28/2020 1:00 PM Care Teams Membership Advisor Relationship Specialty Start Date End Date Sharif Mathias MD [address] [place] [address] PCP - General INTERNAL MEDICINE 11/27/19
--- OUTSIDE RECORDS SUMMARY | 2024-08-08 10:17 | XMS_ITS | Encounter Summary ---
Author Organization [facility] Address [address] [place] [address] Care Team Providers Care Police Stenographer Name Role Phone Sharif Mathias MD Primary Care Provider Encounter Details Date Type Department Care Team (Late st Contact Info) Description 02/02/2020 Hospital Orders Only [place] [facility] [place] [facility] [address] [facility] [place] [address] Keerthi Mcmullen, [facility] [address] [place] [address] Social History Tobacco Use Types [...] on filedocumented in this encounter Care Teams Police Stenographer Relationship Specialty Start Date End Date Sharif Mathias MD [address] [place] [address] PCP - General INTERNAL MEDICINE 11/27/19 documented as of this encounter
--- OUTSIDE RECORDS SUMMARY | 2024-08-08 10:17 | XMS_ITS | Encounter Summary ---
Author Organization [facility] Address [facility] [place] [address] Care Team Providers Care Industrial Property Appraiser Name Role Phone Sharif Mathias MD Primary Care Provider Encounter Details Date Type Department Care Team (Late st Contact Info) Description 02/02/2020 Pre-Procedure Call [facility] [place] [address] Keerthi Mcmullen, [facility] [address] [place] [address] Social History Tobacco Use Types [...] on filedocumented in this encounter Care Teams Industrial Property Appraiser Relationship Specialty Start Date End Date Sharif Mathias MD [address] [place] [address] PCP - General INTERNAL MEDICINE 11/27/19 documented as of this encounter
[2024-08-08 10:51] LABS: Alanine Aminotransferase 19 U/L (14-59); Alkaline Phosphatase 54 U/L (46-116); Anion Gap 9 mmol/L (4-12); Aspartate Amino Transferase 10 U/L (15-37); Bilirubin,Total 0.3 mg/dL (0.00-1.00); Blood Urea Nitrogen 16 mg/dL (7-18); Calcium 8.9 mg/dL (8.5-10.1); Carbon Dioxide 29 mmol/L (21-32); Chloride 105 mmol/L (98-108); Estimated Glomerular Filt Rate > 60; Glucose 74 mg/dL (70-99); Osmolality Calculated 296 mOsm/kg (285-295); Sodium 143 mmol/L (136-145); Thyroid Stimulating Hormone 2.12 uIU/mL (0.36-3.74); Total Protein 7.2 g/dL (6.4-8.2); Vitamin B12 1046 pg/mL (193-986)
[2024-08-08 11:00] LABS: CRP < 0.5 mg/dL (0.0-0.9)
[2024-08-11 10:23] LABS: Methylmalonic Acid 102 nmol/L (55-335)
== END 2024-08-08 09:27 | disposition home or self-care (01) ==
LOC: CHSLAB 09:28
PROVIDERS: PCP Internal Medicine; Visit Provider Internal Medicine
DX: G62.9 Polyneuropathy, unspecified (principal); M54.50 Low back pain, unspecified
CPT/HCPCS: 36415; 71046; 72100; 80053; 81003; 82607; 83921; 84443; 85027; 86038; 86039; 86140

== ENCOUNTER 2024-08-23 09:54 | Outpatient (CLI) | payer OTHER, SELFPAY ==
--- NOTE | ~2024-08-23 | US_ITS ---
US arterial ankle brachial ind INDICATION: Bilateral lower extremity tingling with pain TECHNIQUE: Segmental pressures and plethysmographic and Doppler waveforms of the brachial and lower e xtremity arteries were obtained. COMPARISON: None. FINDINGS: Right and left brachial artery pressures of 100 mm Hg and 91 mm Hg, respectively, are concordant (nor mal difference <= 30 mmHg). The right ankle-brachial index (JONO) is 1.28 (normal >= 0.9-1.0). The right great toe-brachial index (TBI) is 0.8 (normal >= 0.60). The left JONO is 1.3. The left TBI is 0.85. There is triphasic flow in the right dorsalis pedis and posterior tibial arteries. There is biphasic flow in the left dorsalis pedis and posterior tibial arteries. IMPRESSION: 1. Normal bilateral ankle-brachial indices. Reviewed, dictated and finalized at location A.
--- OUTSIDE RECORDS SUMMARY | 2024-08-23 11:12 | XMS_ITS | Clinical Summary ---
Author Organization [facility] Address [facility] [place] [address] Care Team Providers Care Industrial Organizational Psychologist Name Role Phone Sharif Mathias MD Primary Care Provider [phone] Allergies No known active allergies Medications meloxicam [...] 5 Years) and At-Risk Patients (6 to 49 Years) Aged Out No longer eligible b ased on patient's age to complete this topic RSV Immunizations Under 20 Months Aged Out No longer eligible based on patient's age to complete this topic Insurance Advance Directives * Full Code (Latest Code Status on File) Date Activated Date Inactivated Comments 01/26/2020 1:59 PM 01/28/2020 1:00 PM Care Teams Industrial Organizational Psychologist Relationship Specialty Start Date End Date Sharif Mathias MD [address] [place] [address] PCP - General INTERNAL MEDICINE 11/27/19
--- OUTSIDE RECORDS SUMMARY | 2024-08-23 11:12 | XMS_ITS | Encounter Summary ---
Author Organization [facility] Address [address] [place] [address] Care Team Providers Care Urologist Physician Name Role Phone Sharif Mathias MD Primary Care Provider [phone] Encounter Details Date Type Department Care Team (Late st Contact Info) Description 02/02/2020 Hospital Orders Only [place] [facility] [address] [facility] [place] [address] Keerthi Mcmullen, [facility] [address] [place] [address] Social History Tobacco Use Types [...] on filedocumented in this encounter Care Teams Urologist Physician Relationship Specialty Start Date End Date Sharif Mathias MD [address] [place] [address] PCP - General INTERNAL MEDICINE 11/27/19 documented as of this encounter
--- OUTSIDE RECORDS SUMMARY | 2024-08-23 11:12 | XMS_ITS | Encounter Summary ---
Author Organization [facility] Address [facility] [place] [address] Care Team Providers Care Fuel Yard Operator Name Role Phone Sharif Mathias MD Primary Care Provider [phone] Encounter Details Date Type Department Care Team (Late st Contact Info) Description 02/02/2020 Pre-Procedure Call [place] [address] Keerthi Mcmullen, [facility] [address] [place] [address] Social History Tobacco Use Types [...] on filedocumented in this encounter Care Teams Fuel Yard Operator Relationship Specialty Start Date End Date Sharif Mathias MD [address] [place] [address] PCP - General INTERNAL MEDICINE 11/27/19 documented as of this encounter
== END 2024-08-23 09:55 | disposition home or self-care (01) ==
PROVIDERS: PCP Internal Medicine; Visit Provider Internal Medicine
DX: I73.9 Peripheral vascular disease, unspecified (principal)
CPT/HCPCS: 93922

== ENCOUNTER 2024-11-10 19:11 | Emergency (ER) | payer OTHER, SELFPAY ==
[2024-11-10 19:11] VITALS: BP 102/73; PULSE 78; RESP 16; TEMP 36.5; O2SAT 98
--- OUTSIDE RECORDS SUMMARY | 2024-11-10 19:13 | XMS_ITS | Encounter Summary ---
Author Organization [facility] Address [address] [place] [address] Care Team Providers Care Family Helper Name Role Phone Sharif Mathias MD Primary Care Provider [phone] Encounter Details Date Type Department Care Team (Late st Contact Info) Description 02/02/2020 Hospital Orders Only [place] [facility] [address] [place] [address] Keerthi Mcmullen, [facility] [address] [place] [address] Social History Tobacco Use Types [...] on filedocumented in this encounter Care Teams Family Helper Relationship Specialty Start Date End Date Sharif Mathias MD [address] [place] [address] PCP - General INTERNAL MEDICINE 11/27/19 documented as of this encounter
--- OUTSIDE RECORDS SUMMARY | 2024-11-10 19:13 | XMS_ITS | Clinical Summary ---
Author Organization [facility] Address [facility] [place] [address] Care Team Providers Care Dog And Cat Food Cook Name Role Phone Sharif Mathias MD Primary Care Provider [phone] Allergies No known active allergies Medications meloxicam [...] 4:37 PM CDT Height 165.1 cm (5' 5) 09/16/2022 4:37 PM CDT Body Mass Index [...] 1:59 PM 01/28/2020 1:00 PM Care Teams Dog And Cat Food Cook Relationship Specialty Start Date End Date Sharif Mathias MD [address] [place] [address] PCP - General INTERNAL MEDICINE 11/27/19
--- OUTSIDE RECORDS SUMMARY | 2024-11-10 19:13 | XMS_ITS | Encounter Summary ---
Author Organization [facility] Address [address] [place] [address] Care Team Providers Care Weaver Tire Cord Name Role Phone Sharif Mathias MD Primary Care Provider [phone] Encounter Details Date Type Department Care Team (Late st Contact Info) Description 02/02/2020 Pre-Procedure Call [place] [address] Keerthi Mcmullen, [facility] [address] [place] [address] Social History Tobacco Use Types [...] on filedocumented in this encounter Care Teams Weaver Tire Cord Relationship Specialty Start Date End Date Sharif Mathias MD [address] [place] [address] PCP - General INTERNAL MEDICINE 11/27/19 documented as of this encounter
--- NOTE | 2024-11-10 19:46 | ED.URI ---
HPI - URI/Sore Throat General Chief Complaint: Upper Respiratory Infection Stated Complaint: URI Time Seen by Provider: 11/10/24 19:17 Source: patient Mode of arrival: ambulatory Limitations: no limitations History of Present Illness HPI Narrative: Patient is a 34-year-old female with a sore throat for the past 3 days. He also has a runny clear nasal discharge today. She is not concerned for at this time. No sick contacts. No fever or chills. MD elicited complaint: sore throat Pertinent past history: other ( None) Onset (ago): day(s) ( 3) Consistency: constant Severity: mild Pain scale (0-10): 2 Description of mucous: clear Able to tolerate fluids by mouth: Yes Exacerbating factors: nothing Relieving factors: nothing Context: other ( patient has a sore throat for the past 3 days with clear nasal discharge) Associated symptoms: rhinorrhea and sore throat Treatments prior to arrival: none Related Data Allergies Allergy/AdvReac Type Severity Reaction Status Date / Time No Known Allergies Allergy Verified 11/10/24 19:16 Review of Systems Review of Systems: All systems reviewed & are unremarkable except as noted in HPI and below Constitutional: Constitutional: Reports no additional constitutional complaints Eyes: Eyes: Reports no additional eye complaints ENT: Reports system reviewed and no additional complaints, except as documented Cardiovascular: Cardiovascular: Reports no additional cardiovascular complaints Respiratory: Respiratory: Reports no additional respiratory complaints Gastrointestinal: Gastrointestinal: Reports no additional gastrointestinal complaints Genitourinary: Genitourinary: Reports no additional female genitourinary complaints Musculoskeletal: Musculoskeletal: Reports no additional musculoskeletal complaints Integumentary/Breasts: Skin/Breast: Reports system reviewed and no additional complaints, except as docu Neurologic: Reports system reviewed and no additional complaints, except as documented Psychiatric: Psychiatric: Reports no additional psychiatric complaints Endocrine: Endocrine: Reports no additional endocrine complaints Hematologic/Lymphatic: Hematologic/Lymphatic: Reports no additional hematologic/lymphatic complaints Allergic/Immunologic: Allergic/Immunologic: Reports no additional allergic/immunologic complaints PMFSH Past Medical History Medical History Right arm pain GERD (gastroesophageal reflux disease) Asthma Social History Social History Social History: ex-smoker. Smoking packs per day: 1 Smoking cigarettes per day: 20.0 Years smoked: 15 Smoking pack-years: 15.00 Exam Const: General: healthy appearing Nutritional Appearance: well nourished Orientation/consciousness: patient oriented x3 HENMT: Head: normal to inspection Ears: external ears normal Face/Nose/Sinus: Normal external nose present Throat: posterior oropharynx abnormal Other: slightly red oropharynx without tonsillar hypertrophy or pus bilaterally Eyes: Conjunctivae: conjunctivae normal Pupils: Equal, round and reactive pupils present EOM: EOMs intact bilaterally Neck: Neck: normal visual inspection Chest: Chest palpation & inspection: normal inspection of the chest Resp: Effort & Inspection: normal respiratory effort and not labored Auscultation: clear to auscultation bilaterally and no crackles Skin: General skin exam: normal color Rashes: no rashes Wounds: no wounds Neuro: General: patient oriented x3 Cranial nerves: Yes Nystagmus not present Speech: normal speech Gait exam (Neuro): Normal gait present Extrem: General: normal to inspection Psych: Mental Status: mental status grossly normal Affect: normal affect Attitude: cooperative Course Vital Signs Vital signs: Vital Signs Temperature 36.5 C 11/10/24 19:11 Pulse Rate 78 11/10/24 19:11 Respiratory Rate 16 11/10/24 19:11 Blood Pressure 102/73 11/10/24 19:11 Pulse Oximetry 98 11/10/24 19:11 Oxygen Delivery Room Air 11/10/24 19:11 Temperature 36.5 C 11/10/24 19:11 Pulse Rate 78 11/10/24 19:11 Respiratory Rate 16 11/10/24 19:11 Blood Pressure 102/73 11/10/24 19:11 Pulse Oximetry 98 11/10/24 19:11 Oxygen Delivery Room Air 11/10/24 19:11 MDM - URI/Sore Throat MDM Narrative Medical decision making narrative: patient is a 34-year-old female with a sore throat and clear nasal discharge for the past 3 days. We will miss we call this a viral syndrome but if the symptoms continue after 2 more days then she is to fill the azithromycin on file at the pharmacy. Lab Data Attestation: I reviewed the patient's lab results. Labs: Lab Results 11/10/24 Range/Units 19:17 Influenza A (RT-PCR) Negative (Negative) Influenza B (RT-PCR) Negative (Negative) RSV (RT-PCR) Negative (Negative) SARS-CoV-2 RNA (RT-PCR) Negative (Negative) Group A Strep (PCR) Not detected (Negative) Discharge Plan Discharge Clinical Impression: Pharyngitis Qualifiers: Pharyngitis/tonsillitis etiology: unspecified etiology Qualified Code(s): J02.9 - Acute pharyngitis, unspecified Patient Disposition: Home Condition: Stable Instructions: Antibiotic Form, Pharyngitis (ED) Additional Instructions: please allow another 24 hours to go buy as this is likely a viral syndrome and no antibiotics would be needed for that event. However, if this does not get better or happens to get worse over the next 2 days then please fill the antibiotics that I have on file at the pharmacy. Patient Language: Malagasy Prescriptions: New azithromycin 250 mg tablet See Rx Instructions .ROUTE .COMPLEX Qty: 6 0RF Rx Instructions: For 250 mg dose pack: take 500 mg today (day 1), then 250 mg for 4 days (days 2-5) No Action amoxicillin 500 mg capsule 500 mg PO BID 10 Days Qty: 20 0RF omeprazole magnesium [Prilosec OTC] 20 mg tablet,delayed release (DR/EC) 20 mg PO BID Qty: 20 0RF Follow-up/Referrals: Sharif Mathias MD [Primary Care Provider] - Time of Disposition: 20:46
--- OUTSIDE RECORDS SUMMARY | 2024-11-10 19:50 | XMS_ITS | Encounter Summary ---
Author Organization [facility] Address [address] [place] [address] Care Team Providers Care Industrial Gas Service Helper Name Role Phone Sharif Mathias MD Primary Care Provider [phone] Encounter Details Date Type Department Care Team (Late st Contact Info) Description 02/02/2020 Pre-Procedure Call [place] [address] Keerthi Mcmullen, [facility] [address] [place] [address] Social History Tobacco Use Types [...] filedocumented in this encounter Care Teams Industrial Gas Service Helper Relationship Specialty Start Date End Date Sharif Mathias MD [address] [place] [address] PCP - General INTERNAL MEDICINE 11/27/19 documented as of this encounter
--- OUTSIDE RECORDS SUMMARY | 2024-11-10 19:50 | XMS_ITS | Clinical Summary ---
Author Organization [facility] Address [facility] [place] [address] Care Team Providers Care Manager Credit Collections Name Role Phone Sharif Mathias MD Primary Care Provider [phone] Allergies No known active allergies Medications meloxicam [...] 1:59 PM 01/28/2020 1:00 PM Care Teams Manager Credit Collections Relationship Specialty Start Date End Date Sharif Mathias MD [address] [place] [address] PCP - General INTERNAL MEDICINE 11/27/19
--- OUTSIDE RECORDS SUMMARY | 2024-11-10 19:50 | XMS_ITS | Encounter Summary ---
Author Organization [facility] Address [address] [place] [address] Care Team Providers Care Medical Claims Assistant Name Role Phone Sharif Mathias MD Primary Care Provider [phone] Encounter Details Date Type Department Care Team (Late st Contact Info) Description 02/02/2020 Hospital Orders Only [place] [facility] [address] [facility] [place] [address] Keerthi Mcmullen, [facility] [address] [place] [address] Social History Tobacco Use Types [...] on filedocumented in this encounter Care Teams Medical Claims Assistant Relationship Specialty Start Date End Date Sharif Mathias MD [address] [place] [address] PCP - General INTERNAL MEDICINE 11/27/19 documented as of this encounter
[2024-11-10 20:24] LABS: Strep Group A RT-PCR NOT DETECTED (Negative)
[2024-11-10 20:37] LABS: Influenza A QL RT-PCR Negative (Negative); Influenza B QL RT-PCR Negative (Negative); RSV RNA, RT-PCR Negative (Negative); SARS-CoV-2 RNA PCR Negative (Negative)
[2024-11-10 20:52] VITALS: BP 101/74; PULSE 75; RESP 16; O2SAT 99
== END 2024-11-10 20:53 | disposition home or self-care (01) ==
PROVIDERS: Emergency Provider Emergency Medicine; PCP Internal Medicine
DX: J02.9 Acute pharyngitis, unspecified (principal); Z20.822 Contact with and (suspected) exposure to COVID-19; Z87.891 Personal history of nicotine dependence
CPT/HCPCS: 87637; 87651; 99283

== ENCOUNTER 2025-02-10 07:27 | Emergency (ER) | payer OTHER, SELFPAY ==
--- NOTE | ~2025-02-10 | XR_ITS ---
Examination: XR chest 1V portable Clinical History: COUGH Comparison: 08/08/2024 Technique: Portable AP Findings: Heart size normal. Lungs clear. No acute bony abnormality. IMPRESSION: 1. No acute cardiopulmonary findings given portable technique. Reviewed, dictated and finalized at location R.
[2025-02-10 07:28] VITALS: BP 110/70; PULSE 99; RESP 18; O2SAT 100
[2025-02-10 08:44] VITALS: BP 109/75; PULSE 78; RESP 19; TEMP 36.9; O2SAT 98
[2025-02-10 08:47] VITALS: O2SAT 100
[2025-02-10 09:33] LABS: Influenza A QL RT-PCR Negative (Negative); Influenza B QL RT-PCR Negative (Negative); RSV RNA, RT-PCR Negative (Negative); SARS-CoV-2 RNA PCR Negative (Negative)
[2025-02-10 10:03] VITALS: BP 112/73; PULSE 87; RESP 16; O2SAT 96
--- NOTE | 2025-02-10 12:30 | ED_ITS ---
HPI - General Adult General Chief complaint: Upper Respiratory Infection Stated complaint: need x ray of lungs Time Seen by Provider: 02/10/25 08:58 History of Present Illness HPI narrative: This is a 34-year-old female presenting with 2 days of cough. Patient has a sick 5-year-old at home who has URI symptoms. Now the patient is having a mostly nonproductive cough. She has had a temperature of 100.1? at home. She has some chest discomfort when she coughs but no chest pain at rest. She is not particularly short of breath. She does have sinus congestion. No nausea vomiting diarrhea. No abdominal pain. She has not taken any medication for symptoms. Related Data Allergies Allergy/AdvReac Type Severity Reaction Status Date / Time No Known Allergies Allergy Verified 02/10/25 08:47 [facility] Past Medical History Medical History Right arm pain GERD (gastroesophageal reflux disease) Asthma Social History Social History Social History: ex-smoker. Smoking packs per day: 1 Smoking cigarettes per day: 20.0 Years smoked: 15 Smoking pack-years: 15.00 Exam Narrative: APPEARANCE: No apparent distress. Intermittently coughing during the interview Head: atraumatic. EYES: EOMI, NOSE: Atraumatic NECK: Trachea midline RESPIRATORY: No increased rate of breathing clear to auscultation, speaking in full sentences CARDIOVASCULAR: RRR, no peripheral edema ABDOMINAL: Non-distended soft nontender MUSCULOSKELETAl: No obvious deformities NEURO: Alert. Moving 4/4 extremities SKIN:: Warm, dry. Normal color PSYCHIATRIC: Normal affect Course Vital Signs Vital signs: Vital Signs Pulse Rate 99 02/10/25 07:28 Respiratory Rate 18 02/10/25 07:28 Blood Pressure 110/70 02/10/25 07:28 Pulse Oximetry 100 02/10/25 07:28 Oxygen Delivery Room Air 02/10/25 07:28 Temperature 98.5 F 02/10/25 08:44 Pulse Rate 87 02/10/25 10:03 Respiratory Rate 16 02/10/25 10:03 Blood Pressure 112/73 02/10/25 10:03 Pulse Oximetry 96 02/10/25 10:03 Oxygen Delivery Room Air 02/10/25 08:47 Medical Decision Making [facility] Narrative Medical decision making narrative: -Course: 34-year-old female presenting with cough. Chest x-ray was clear. Viral swabs were negative. Vital signs are stable. She has clear lungs on exam and is very well appearing overall. Suspect this is a viral infection which she has contracted from her daughter who also has URI symptoms. Patient will be discharged with symptomatic treatment and given return precautions for worsening shortness of breath chest pain or any new symptoms. -DDX includes but is not limited to: Viral syndrome, for bronchitis, COVID, flu, pneumonia Vital Signs Vital Signs: Vital Signs Pulse Rate 99 02/10/25 07:28 Respiratory Rate 18 02/10/25 07:28 Blood Pressure 110/70 02/10/25 07:28 Pulse Oximetry 100 02/10/25 07:28 Oxygen Delivery Room Air 02/10/25 07:28 Temperature 98.5 F 02/10/25 08:44 Pulse Rate 87 02/10/25 10:03 Respiratory Rate 16 02/10/25 10:03 Blood Pressure 112/73 02/10/25 10:03 Pulse Oximetry 96 02/10/25 10:03 Oxygen Delivery Room Air 02/10/25 08:47 Lab Data Labs: Lab Results 02/10/25 Range/Units 08:54 Influenza A (RT-PCR) Negative (Negative) Influenza B (RT-PCR) Negative (Negative) RSV (RT-PCR) Negative (Negative) SARS-CoV-2 RNA (RT-PCR) Negative (Negative) Discharge Plan Discharge Clinical Impression: Cough, Acute viral syndrome Patient Disposition: Home Condition: Stable Instructions: Antibiotic Form, Viral Syndrome (ED) Additional Instructions: You were seen in the emergency department for cough. You likely have a virus. Please use Robitussin DM as needed for cough. Use Motrin or Tylenol for body aches and fevers. If you feel that your condition is getting worse, you develop shortness of breath, chest pain, or persistent nausea and vomiting please return to the ER for re-evaluation. Patient Language: Kazakh Prescriptions: New Robitussin Cough-Chest Dave DM 10-200 mg capsule 1 tab-cap PO ONCE PRN (Reason: cough) Qty: 14 0RF Cepacol Sore Throat (roel-men) 15-2.6 mg lozenge 1 angela mucous membrane Q2-4H PRN (Reason: cough) Qty: 16 0RF No Action amoxicillin 500 mg capsule 500 mg PO BID 10 Days Qty: 20 0RF omeprazole magnesium [Prilosec OTC] 20 mg tablet,delayed release (DR/EC) 20 mg PO BID Qty: 20 0RF azithromycin 250 mg tablet See Rx Instructions .ROUTE .COMPLEX Qty: 6 0RF Rx Instructions: For 250 mg dose pack: take 500 mg today (day 1), then 250 mg for 4 days (days 2-5) Follow-up/Referrals: Sharif Mathias MD [Primary Care Provider, Internal Medicine] - 3 Days Referral Note: Cough
== END 2025-02-10 13:11 | disposition home or self-care (01) ==
PROVIDERS: Emergency Provider Emergency Medicine; PCP Internal Medicine
DX: B34.9 Viral infection, unspecified (principal); R05.9 Cough, unspecified; J45.909 Unspecified asthma, uncomplicated; K21.9 Gastro-esophageal reflux disease without esophagitis; Z87.891 Personal history of nicotine dependence
CPT/HCPCS: 71045; 87637; 99283; A9270